=== PATIENT | male | born 2000 | race Caucasian/White ===

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

== ENCOUNTER → 2021-01-27 | Outpatient (CLI) | payer OTHER ==
[2021-01-27 18:54] LABS: Basophils # (A) 0.11 X 10*3/uL (0.00-0.10); Eosinophils # (A) 0.21 X 10*3/uL (0.04-0.35); Eosinophils % (A) 3.8 %; HCT 45.6 % (39.6-50.0); Lymphocytes # (A) 1.79 X 10*3/uL (0.90-5.00); MCH 29.8 pg (27.0-32.0); MCHC 32.9 g/dL (32.0-37.0); MCV 90.7 fL (80.0-97.0); Mean Platelet Volume 10.3 fL (9.5-12.2); Monocytes # (A) 0.44 X 10*3/uL (0.20-1.00); Monocytes % (A) 7.9 %; Neutrophils # (A) 3.04 X 10*3/uL (1.80-7.70); Neutrophils % (A) 54.3 %; Platelet Count 359 X 10*3/uL (140-440); RBC 5.03 X 10*6/uL (4.40-5.60); RDW 11.6 % (11.5-14.5); WBC 5.59 X 10*3/uL (4.50-10.00)
[2021-01-27 21:46] LABS: ALT 14 U/L (10-49); AST 15 U/L (14-35); African American GFR (CKD) 124.1 (60.0-200.0); Albumin/Globulin Ratio 2.85 (1.60-3.17); Alkaline Phosphatase 85 U/L (41-126); Calcium 10.4 mg/dL (8.7-10.3); Carbon Dioxide 27.8 mmol/L (21.6-31.8); Chloride 106 mmol/L (96-109); Cholesterol 137 mg/dL (0-200); Glucose 88 mg/dL (70-110); Non-African American GFR(CKD) 107.1 (60.0-200.0); Potassium 4.5 mmol/L (3.5-5.5); Sodium 140 mmol/L (135-145); Total Bilirubin 0.6 mg/dL (0.3-1.2); Total Protein 7.7 g/dL (6.2-8.2); Triglycerides <50.0 mg/dL (0.0-149.0)
== END | disposition home or self-care (01) ==
LOC: LABWHC1 11:28
PROVIDERS: ATTEND Family Medicine
DX: Z00.00 Encounter for general adult medical examination without abnormal findings (principal); Z71.3 Dietary counseling and surveillance; Z71.82 Exercise counseling; Z71.41 Alcohol abuse counseling and surveillance of alcoholic; Z68.20 Body mass index [BMI] 20.0-20.9, adult
CPT/HCPCS: 36415; 80053; 80061; 85025

== ENCOUNTER → 2022-02-02 | Outpatient (CLI) | payer OTHER ==
[2022-02-02 19:52] LABS: Basophils % (A) 1.5 %; Eosinophils # (A) 0.38 X 10*3/uL (0.04-0.35); Eosinophils % (A) 5.9 %; HCT 46.1 % (39.6-50.0); HGB 15.1 g/dL (13.0-17.0); Immature Grans, Automated 0.2 %; Lymphocytes # (A) 2.15 X 10*3/uL (0.90-5.00); Lymphocytes % (A) 33.2 %; MCH 29.5 pg (27.0-32.0); MCHC 32.8 g/dL (32.0-37.0); Mean Platelet Volume 10.1 fL (9.5-12.2); Monocytes # (A) 0.48 X 10*3/uL (0.20-1.00); Monocytes % (A) 7.4 %; NRBC Per 100 WBC 0 /100 WBCS (0.0-0.0); Neutrophils # (A) 3.36 X 10*3/uL (1.80-7.70); Neutrophils % (A) 51.8 %; Platelet Count 409 X 10*3/uL (140-440); RBC 5.12 X 10*6/uL (4.40-5.60); RDW 11.9 % (11.5-14.5); WBC 6.48 X 10*3/uL (4.50-10.00)
[2022-02-02 21:12] LABS: ALT 18 U/L (10-49); AST 17 U/L (14-35); African American GFR (CKD) 123.3 (60.0-200.0); Albumin/Globulin Ratio 1.79 (1.60-3.17); Alkaline Phosphatase 75 U/L (41-126); Blood Urea Nitrogen 11.9 mg/dL (9.0-27.0); Calcium 9.8 mg/dL (8.7-10.3); Carbon Dioxide 25.4 mmol/L (20.0-27.5); Chloride 102 mmol/L (96-109); Chol/HDL Ratio 3.47 Ratio; Globulin 2.8 g/dL (1.6-3.3); Glucose 80 mg/dL (70-110); LDL Cholesterol,Calculated 82.6 mg/dL (0.0-131.0); Non-African American GFR(CKD) 106.4 (60.0-200.0); Potassium 4.5 mmol/L (3.5-5.5); Sodium 139 mmol/L (135-145); Total Protein 7.8 g/dL (6.2-8.2)
== END | disposition home or self-care (01) ==
LOC: LABWHC1 11:19
PROVIDERS: ATTEND Family Medicine
DX: Z00.00 Encounter for general adult medical examination without abnormal findings (principal); J30.89 Other allergic rhinitis
CPT/HCPCS: 36415; 80053; 80061; 85025